=== PATIENT | female | born 1925 | race Caucasian/White ===

== ENCOUNTER 2016-11-25 15:31 | Inpatient (IN) | payer OTHER, MEDICAID ==
[~2016-11-25] VITALS: Ht 160 cm; Wt 63.5 kg
[2016-11-25 16:11] LABS: BASOPHILS % (AUTO) 0.6 % (0.0-2.0); DIFF TOTAL % 100 %; EOSINOPHILS # (AUTO) 0.1 /CMM (0.0-0.7); EOSINOPHILS % (AUTO) 0.8 % (0.0-6.0); HEMATOCRIT 27 % (33-45); LYMPHOCYTES # (AUTO) 1.2 /CMM (0.8-4.8); LYMPHOCYTES % (AUTO) 14.4 % (20.0-44.0); MEAN CORPUSCULAR HEMOGLOBIN 30 PG (26.0-33.0); MEAN CORPUSCULAR HGB CONC 34 g/dl (31.0-36.0); MEAN CORPUSCULAR VOLUME 87 fL (82-100); MONOCYTES # (AUTO) 0.6 /CMM (0.1-1.30); MONOCYTES % (AUTO) 7.6 % (2.0-12.0); NEUTROPHILS # (AUTO) 6.3 /CMM (1.8-8.9); NEUTROPHILS % (AUTO) 76.6 % (43.0-81.0); PLATELET COUNT (AUTO) 135 /CMM (150-450); RED BLOOD CELL COUNT(AUTO) 3.05 MIL/uL (4.0-5.2); WHITE BLOOD COUNT (AUTO) 8.2 K/uL (4.3-11.0)
[2016-11-25 16:27] LABS: ALANINE AMINOTRANSFERASE 31 U/L (12-78); ALBUMIN 2.6 g/dL (3.4-5.0); ANION GAP 10 (5-14); ASPARTATE AMINOTRANSFERASE 19 U/L (15-37); BILIRUBIN,DIRECT 0.1 mg/dL (0.0-0.2); BILIRUBIN,TOTAL 0.5 mg/dL (0.2-1.0); CALCIUM, SERUM 7.8 mg/dL (8.5-10.1); CARBON DIOXIDE 28 mmol/L (21-32); CHLORIDE 107 mmol/L (98-107); CREATININE 0.8 mg/dL (0.6-1.3); GLUCOSE 99 mg/dL (74-106); POTASSIUM 3.7 mmol/L (3.5-5.1); SODIUM SERUM 142 mmol/L (136-145); TOTAL PROTEIN, SERUM 7.1 g/dL (6.4-8.2); UREA NITROGEN, BLOOD 16 mg/dL (7-18)
[2016-11-25 16:30] LABS: TROPONIN I < 0.017 ng/mL (0.00-0.056)
[2016-11-25 16:31] LABS: INDIRECT BILIRUBIN 0.4 mg/dL (0.0-1.1)
[2016-11-25 16:54] LABS: INR 1.06 (0.87-1.13); PROTHROMBIN TIME 11.1 SECS (9.5-12.7)
[2016-11-25] MEDS ORDERED: ACETAMINOPHEN 325 MG TABLET PO PRN (17:30)
[2016-11-25] MEDS ORDERED: HYDROCODONE/APAP 10/325MG 1 EA TABLET PO PRN (17:30)
[2016-11-25] MEDS ORDERED: HYDROCODONE/APAP 5/325MG 1 EACH TABLET PO PRN (17:30)
[2016-11-25] MEDS ORDERED: ZOLPIDEM TARTRATE 5 MG TABLET PO PRN (17:30)
[2016-11-25] MEDS ORDERED: MAG HYDROX/AL HYDROX/SIMETH 30 ML UDC PO PRN (17:30)
[2016-11-25] MEDS ORDERED: MAGNESIUM HYDROXIDE 30 ML UDC PO PRN (17:30)
[2016-11-25] MEDS ORDERED: Z GUARD REMEDY 2 OZ OINT TP PRN (17:30)
[2016-11-25] MEDS ORDERED: ONDANSETRON HCL/PF 4 MG/2 ML VIAL IVP PRN (17:30)
[2016-11-25] MEDS ORDERED: OXYC5CAP3 PO (17:43)
[2016-11-25] MEDS ORDERED: LACT10SO7 PO (17:43)
[2016-11-25] MEDS ORDERED: ASCO500T9 PO (17:43)
[2016-11-25] MEDS ORDERED: ACET-2605 PO (17:43)
[2016-11-25] MEDS ORDERED: GABA-532 PO (17:43)
[2016-11-25] MEDS ORDERED: CALC500T52 PO (17:43)
[2016-11-25] MEDS ORDERED: OMEG500C3 PO (17:43)
[2016-11-25] MEDS ORDERED: MULT-24 PO (17:43)
[2016-11-25] MEDS ORDERED: DOCU250C75 PO (17:43)
[2016-11-25] MEDS ORDERED: CHOL400T11 PO (17:43)
[2016-11-25] MEDS ORDERED: OXYC10TA49 PO (17:43)
[2016-11-25] MEDS ORDERED: TRAZ-144 PO (17:43)
[2016-11-25] MEDS ORDERED: CABE0.5T2 PO (17:43)
[2016-11-25 17:58] LABS: KETONES,URINE Negative (NEGATIVE); LEUKOCYTE ESTERASE ,URINE Large (NEGATIVE); PH,URINE 6.5 (5.0-8.0)
[2016-11-25] MEDS ORDERED: KETOROLAC TROMETHAMINE 10 MG TABLET PO PRN (18:00)
[2016-11-25 18:05] LABS: ADD UA MICROSCOPIC YES
[2016-11-25 18:16] LABS: ADD URINE CULTURE YES; WBC,URINE TOO NUMEROUS TO COUN /HPF (0-3)
[2016-11-25 20:00] VITALS: BP 128/82
[2016-11-26] VITALS: BP 135/69
[2016-11-26] MEDS ORDERED: CIPROFLOXACIN HCL 500 MG TABLET ONE (03:06)
[2016-11-26] MEDS: CIPROFLOXACIN HCL 500 MG TABLET PO SCH ×3 (03:13→17:23)
[2016-11-26] MEDS ORDERED: CIPROFLOXACIN HCL 250 MG TABLET PO SCH (03:30)
[2016-11-26 04:00] VITALS: BP 129/88
[2016-11-26 06:55] LABS: BASOPHILS % (AUTO) 0.1 % (0.0-2.0); DIFF TOTAL % 100 %; EOSINOPHILS # (AUTO) 0.1 /CMM (0.0-0.7); EOSINOPHILS % (AUTO) 1.2 % (0.0-6.0); HEMATOCRIT 28 % (33-45); HEMOGLOBIN 9.5 g/dL (11.5-14.8); MEAN CORPUSCULAR HEMOGLOBIN 30 PG (26.0-33.0); MEAN CORPUSCULAR HGB CONC 34 g/dl (31.0-36.0); MEAN CORPUSCULAR VOLUME 88 fL (82-100); MONOCYTES # (AUTO) 0.6 /CMM (0.1-1.30); NEUTROPHILS # (AUTO) 3.7 /CMM (1.8-8.9); NEUTROPHILS % (AUTO) 67.7 % (43.0-81.0); PLATELET COUNT (AUTO) 136 /CMM (150-450); RED BLOOD CELL COUNT(AUTO) 3.19 MIL/uL (4.0-5.2); WHITE BLOOD COUNT (AUTO) 5.4 K/uL (4.3-11.0)
[2016-11-26 07:12] LABS: CALCIUM, SERUM 7.9 mg/dL (8.5-10.1); CREATININE 0.8 mg/dL (0.6-1.3); PHOSPHORUS 3.5 mg/dL (2.5-4.9); POTASSIUM 3.8 mmol/L (3.5-5.1)
[2016-11-26 07:21] LABS: THYROID STIMULATING HORMONE 3.102 uIU/mL (0.358-3.74)
[2016-11-26 08:00] VITALS: BP_SYST 127; BP_DIAS 67; BP_DIAS 76
[2016-11-26] MEDS: PANTOPRAZOLE 40 MG TABLET.DR PO SCH (09:46)
[2016-11-26 10:59] LABS: IRON, SERUM 41 ug/dl (50-175); PERCENT SATURATION 23 % (14-33); TOTAL IRON BINDING CAPACITY 179 ug/dl (250-450)
[2016-11-26 12:00] VITALS: BP 113/57
[2016-11-26 16:00] VITALS: BP 122/88
[2016-11-26] MEDS: MORPHINE SULFATE INJ 2 MG/ML DISP.SYRIN IV PRN (16:27)
[2016-11-26 20:00] VITALS: BP 139/52
[2016-11-27] VITALS: BP 147/52
[2016-11-27 04:00] VITALS: BP 150/60
[2016-11-27] MEDS: MORPHINE SULFATE INJ 2 MG/ML DISP.SYRIN IV PRN (06:59)
[2016-11-27 07:17] LABS: BASOPHILS % (AUTO) 0.1 % (0.0-2.0); DIFF TOTAL % 100 %; EOSINOPHILS % (AUTO) 0.8 % (0.0-6.0); HEMATOCRIT 29 % (33-45); HEMOGLOBIN 9.9 g/dL (11.5-14.8); LYMPHOCYTES # (AUTO) 0.8 /CMM (0.8-4.8); LYMPHOCYTES % (AUTO) 15.3 % (20.0-44.0); MEAN CORPUSCULAR HEMOGLOBIN 30 PG (26.0-33.0); MEAN CORPUSCULAR HGB CONC 34 g/dl (31.0-36.0); MEAN CORPUSCULAR VOLUME 89 fL (82-100); MONOCYTES # (AUTO) 0.6 /CMM (0.1-1.30); MONOCYTES % (AUTO) 10.6 % (2.0-12.0); NEUTROPHILS # (AUTO) 3.9 /CMM (1.8-8.9); NEUTROPHILS % (AUTO) 73.2 % (43.0-81.0); PLATELET COUNT (AUTO) 160 /CMM (150-450); RED BLOOD CELL COUNT(AUTO) 3.29 MIL/uL (4.0-5.2); WHITE BLOOD COUNT (AUTO) 5.4 K/uL (4.3-11.0)
[2016-11-27 07:32] LABS: CALCIUM, SERUM 8.1 mg/dL (8.5-10.1); CREATININE 0.8 mg/dL (0.6-1.3); POTASSIUM 4.1 mmol/L (3.5-5.1)
[2016-11-27 08:00] VITALS: BP 136/51
[2016-11-27] MEDS: PANTOPRAZOLE 40 MG TABLET.DR PO SCH (08:08)
[2016-11-27] MEDS: CIPROFLOXACIN HCL 500 MG TABLET PO SCH ×2 (08:08→17:06)
[2016-11-27 12:00] VITALS: BP 131/50
[2016-11-27] MEDS ORDERED: CIPROFLOXACIN HCL PO (12:09)
[2016-11-27] MEDS: NA PHOS,M-B/NA PHOS,DI-BA 1 EA ENEMA RC PRN (12:11)
[2016-11-27 16:00] VITALS: BP 138/66
[2016-11-27 20:00] VITALS: BP 123/57
[2016-11-28] VITALS: BP 154/60
[2016-11-28 04:00] VITALS: BP 144/58
[2016-11-28] MEDS: NA PHOS,M-B/NA PHOS,DI-BA 1 EA ENEMA RC PRN (05:29)
[2016-11-28 08:00] VITALS: BP 138/52
[2016-11-28] MEDS: CIPROFLOXACIN HCL 500 MG TABLET PO SCH ×2 (08:15→17:21)
[2016-11-28] MEDS: PANTOPRAZOLE 40 MG TABLET.DR PO SCH (08:15)
[2016-11-28 12:00] VITALS: BP 120/52
[2016-11-28 16:00] VITALS: BP 95/62
== END 2016-11-28 19:58 | disposition short-term general hospital (02) | DRG 199 ==
LOC: ER 15:34 → TELE-TD 18:24 → TELE1 22:52 → MEDSG1 11-28 11:37
DX: S27.2XXA Traumatic hemopneumothorax, initial encounter (principal); J96.00 Acute respiratory failure, unspecified whether with hypoxia or hypercapnia; N39.0 Urinary tract infection, site not specified; S22.42XA Multiple fractures of ribs, left side, initial encounter for closed fracture; S27.329A Contusion of lung, unspecified, initial encounter; D62 Acute posthemorrhagic anemia; W18.30XA Fall on same level, unspecified, initial encounter; Y92.89 Other specified places as the place of occurrence of the external cause; Z87.891 Personal history of nicotine dependence; Y93.9 Activity, unspecified; Y99.9 Unspecified external cause status; Z85.72 Personal history of non-Hodgkin lymphomas; Z98.890 Other specified postprocedural states; D50.0 Iron deficiency anemia secondary to blood loss (chronic); B96.20 Unspecified Escherichia coli [E. coli] as the cause of diseases classified elsewhere
CPT/HCPCS: 36415; 71010-TC; 80048-TC; 80061-TC; 80076-TC; 81000-TC; 83540-TC; 83735-TC; 84100-TC; 84443-TC; 84484-TC; 85025-TC; 85730-TC; 87040-TC; 87081-TC; 87086-TC; 87186-TC; 94799-TC; 97001-TC; A4606; J2270; J2405; Z7610